=== PATIENT | female | born 1935 | race Caucasian/White ===

== ENCOUNTER → 2017-11-09 | Outpatient (CLI) | END | disposition home or self-care (01) ==

== ENCOUNTER 2017-11-16 10:03 | Day surgery (SDC) | END 2017-11-19 08:51 | disposition home health service (06) ==

== ENCOUNTER → 2018-06-13 | Outpatient (CLI) | payer MEDICARE, BC, MEDICAID ==
[~2018-06-13] MED LIST: ASC500 PO; BISA-57 PO; CALC300T4 PO; GABA600T PO; LIDO700A29 TP; LOSA100T3 PO; MAGN400O19 PO; METF100010 PO; METF500T24 PO; OMEP20CA16 PO; OXYB5TAB22 PO; PSYL3.4P5 PO; UDMYL PO
== END | disposition home or self-care (01) ==
LOC: VAS 10:05
PROVIDERS: ATTEND Internal Medicine Interventional Cardiology
DX: R22.31 Localized swelling, mass and lump, right upper limb (principal)
CPT/HCPCS: 93970

== ENCOUNTER → 2018-11-21 | Outpatient (CLI) | payer MEDICARE, BC, MEDICAID ==
[~2018-11-21] MED LIST changes: -OMEP20CA16 PO; +OMEP20CA17 PO
== END | disposition home or self-care (01) ==
LOC: EKG 08:50 → EEVIPCON 08:50
PROVIDERS: ATTEND Internal Medicine Interventional Cardiology
DX: I73.9 Peripheral vascular disease, unspecified (principal)
CPT/HCPCS: 93306; 93922; 93970